=== PATIENT | female | born 1960 | race Caucasian/White ===

== ENCOUNTER 2017-06-04 12:46 | Day surgery (SDC) | payer OTHER ==
[~2017-06-04] VITALS: Ht 160 cm; Wt 66.2 kg
[2017-06-04 13:54] VITALS: Ht 160 cm; Wt 66.2 kg
[2017-06-04] MEDS ORDERED: GLUCOSAMINE (13:58)
[2017-06-04] MEDS ORDERED: TRHC5025 PO (13:58)
[2017-06-04 14:29] VITALS: BP 126/78; PULSE 80; RESP 26
--- NOTE | 2017-06-04 15:09 | OPPN ---
Date/Time of Note Date/Time of Note DATE: 06/04/17 TIME: 15:07 Operative Report Preoperative Diagnosis Abdominal pain Chronic heartburn Screening colonoscopy Postoperative Diagnosis Hiatal hernia and gastroesophageal reflux disease Gastritis with erosions Sigmoid colon polyp was removed using the snare and electrocautery Internal hemorrhoids Operation/Procedure Performed Esophagogastroduodenoscopy and biopsy Colonoscopy and polypectomy Surgeon see signature line general office assistant None Anesthesia: moderate sedation Estimated blood loss: none Transfusion Required none Specimen Gastric mucosal biopsy Sigmoid colon polyp Grafts/Implants none Complications none CHAD TANG MD Jun 04, 2017 15:09
--- NOTE | 2017-06-04 15:09 | OPPN ---
Date/Time of Note Date/Time of Note DATE: 06/04/17 TIME: 15:07 Operative Report Preoperative Diagnosis Abdominal pain Chronic heartburn Screening colonoscopy Postoperative Diagnosis Hiatal hernia and gastroesophageal reflux disease Gastritis with erosions Sigmoid colon polyp was removed using the snare and electrocautery Internal hemorrhoids Operation/Procedure Performed Esophagogastroduodenoscopy and biopsy Colonoscopy and polypectomy Surgeon see signature line histology assistant None Anesthesia: moderate sedation Estimated blood loss: none Transfusion Required none Specimen Gastric mucosal biopsy Sigmoid colon polyp Grafts/Implants none Complications none CHAD TANG MD Jun 04, 2017 15:09
--- NOTE | 2017-06-04 15:09 | OPPN ---
Date/Time of Note Date/Time of Note DATE: 06/04/17 TIME: 15:07 Operative Report Preoperative Diagnosis Abdominal pain Chronic heartburn Screening colonoscopy Postoperative Diagnosis Hiatal hernia and gastroesophageal reflux disease Gastritis with erosions Sigmoid colon polyp was removed using the snare and electrocautery Internal hemorrhoids Operation/Procedure Performed Esophagogastroduodenoscopy and biopsy Colonoscopy and polypectomy Surgeon see signature line assistant plant manager None Anesthesia: moderate sedation Estimated blood loss: none Transfusion Required none Specimen Gastric mucosal biopsy Sigmoid colon polyp Grafts/Implants none Complications none CHAD TANG MD Jun 04, 2017 15:09
[2017-06-04] MEDS ORDERED: MIDAZOLAM 1 MG/ML 2 ML INJ ONE ×3 (15:12)
[2017-06-04] MEDS ORDERED: FENTAnyl 50 MCG/ML VIAL ONE (15:12)
[2017-06-04 15:40] VITALS: BP 119/74; RESP 14
--- NOTE | 2017-06-05 05:06 | GILP ---
DATE OF PROCEDURE: NAME OF PROCEDURES: 1. Esophagogastroduodenoscopy and biopsy. 2. Colonoscopy and polypectomy. SURGEON: Chad Bell MD PREOPERATIVE DIAGNOSES: 1. Abdominal pain. 2. Chronic heartburn. 3. Screening colonoscopy. POSTOPERATIVE DIAGNOSES: 1. Hiatal hernia. 2. Gastroesophageal reflux disease. 3. Gastritis with erosions. 4. Gastric mucosal biopsies were taken for Helicobacter pylori test. 5. Colonoscopy all the way to the cecum. 6. Sigmoid colon polyp was removed using the snare and electrocautery. 7. Internal hemorrhoids. INDICATION FOR THE PROCEDURE: Ms. Pinky Sharp is a 56-year-old female patient who had upper abdomin al pain and chronic heartburn, not responding to therapy. The patient also needed screening colonos copy. She had history of colon polyps. The procedures and possible complications are well explained to the patient, she understood and cons ented to the procedure. DESCRIPTION OF PROCEDURE: Under the influence of fentanyl and Versed, the gastroscope was carefully introduced into the esophagus and under direct vision, it was advanced to the stomach and through t he pylorus into the duodenal bulb and descending duodenum. FINDINGS: ESOPHAGUS: The patient had hiatal hernia and gastroesophageal reflux disease. STOMACH: She had gastritis with erosions. Gastric mucosal biopsies were taken for H. pylori test. DUODENUM: Normal. The colonoscope was carefully introduced in the rectum and under direct vision, it was advanced all the way to the cecum. FINDINGS: The patient had a sigmoid colon polyp and it was removed using the snare and electrocaute ry. She had internal hemorrhoids. She tolerated the procedures very well and there was no complication from the procedures. At the en d of the procedures, she was awake with stable vital signs and she was discharged home to the care o f her family. IMPRESSION: Please see postoperative diagnosis. PLAN: 1. Omeprazole 40 mg p.o. q.a.m. 2. Await histopathology reports. 3. Next screening colonoscopy in 5 years. Dictated By: CHAD COSTELLO/JUNE Conf#: [id number] DID#: [id number]
== END 2017-06-04 17:36 | disposition home or self-care (01) ==
LOC: GIL 12:46
PROVIDERS: ATTEND Internal Medicine Gastroenterology
DX: Z12.11 Encounter for screening for malignant neoplasm of colon (principal); D12.5 Benign neoplasm of sigmoid colon; K29.70 Gastritis, unspecified, without bleeding; K21.9 Gastro-esophageal reflux disease without esophagitis; K44.9 Diaphragmatic hernia without obstruction or gangrene; K64.8 Other hemorrhoids; I10 Essential (primary) hypertension
CPT/HCPCS: 43239; 45385; 87081; 88305; J2250; J3010; Z7610